=== PATIENT | female | born 1985 | race Caucasian/White ===

== ENCOUNTER → 2016-09-14 | Outpatient (CLI) | payer OTHER ==
--- NOTE | 2016-09-14 12:33 | KCIC ---
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 Instructions: Multile ear surgeries to both ears, hx tumors / History: Bilateral earaches, hearing loss and discharge. Technique: Thin slice contiguous axial images were obtained through the region of the temporal bone in both bone and soft tissue algorithm. Additional coronal and sagittal reconstructions were also performed. FINDINGS: RIGHT temporal bone:The external auditory canal is patent. The tympanic membrane is absent. Part of the scutum has been resected. The middle ear ossicles are absent. Some middle ear septations are noted but there is no fluid collection or soft tissue mass. The inner ear structures are unremarkable. The facial nerve is within normal limits. The internal auditory canal is within normal limits. There is no enlargement of the vestibular aqueduct. The mastoid air cells are clear. No fractures are seen. LEFT temporal bone:{The external auditory canal is patent. The tympanic membrane is absent. Part of the scutum has been resected. The middle ear ossicles are absent. Some middle ear septations are noted but there is no fluid collection or soft tissue mass. The inner ear structures are unremarkable. The facial nerve is within normal limits. The internal auditory canal is within normal limits. There is no enlargement of the vestibular aqueduct. The mastoid air cells are clear. No fractures are seen. Limited evaluation of the intracranial contents reveals no abnormality. IMPRESSION: There are postsurgical changes bilaterally with partial resection of the scutum, removal of the middle ear ossicles, and nonvisualization of the tympanic membranes. There is however, no soft tissue thickening or fluid within the middle ear space. There are some septations that appear to be present on the right. Electronically signed by: Hunter Madison (Sep 14, 2016 12:32:31)
== END | disposition home or self-care (01) ==
LOC: KCIC CT 11:44
PROVIDERS: ATTEND Otolaryngology
DX: R51 Headache (principal)
CPT/HCPCS: 70480